=== PATIENT | female | born 1985 ===

== ENCOUNTER 2017-02-11 14:59 | Emergency (ER) | payer OTHER ==
[2017-02-11 15:27] VITALS: O2SAT 100
--- NOTE | 2017-02-11 17:13 | EDPHY ---
H & P Time Seen by Provider: 02/11/17 16:51 HPI/ROS: CHIEF COMPLAINT: skin lesion left shoulder HISTORY OF PRESENT ILLNESS: 31-year-old female presents to the emergency department complaining of a skin lesion to her left shoulder that has been growing over the last 8 weeks. Patient states that if she bumps it or scratches it this bleeds. Patient states she may have had a bad sunburn just before this started. She denies any trauma. No fevers or chills, no difficulty with range of motion of her shoulder, no shoulder swelling or left arm swelling. No other rash, no other complaints. Smoking Status: Never smoked Physical Exam: GEN: Awake, alert, oriented, no acute distress RESP: nl resp effort MSK: Full active range of motion of all joints, 2+ radial pulses SKIN: 0.5cm x 0.5cm red, raised, smooth lesion to left shoulder. No drainage, no surrounding erythema, non tender. Constitutional: Initial Vital Signs Temperature (C) 36.7 C 02/11/17 15:15 Heart Rate 92 02/11/17 15:15 Respiratory Rate 18 02/11/17 15:15 Blood Pressure 144/100 H 02/11/17 15:15 O2 Sat (%) 100 02/11/17 15:15 O2 Delivery Mode Room Air Allergies/Adverse Reactions: No Known Allergies Allergy (Verified 02/11/17 15:23) Home Medications: Medication Instructions Recorded Lisdexamfetamine Dimesylate 70 mg PO DAILY 11/24/12 [Vyvanse] Control Pill 02/11/17 MDM/Departure - [facility] ED Course/Re-evaluation: I discussed the patient that she needs to see bellman captain to have this lesion removed and evaluated. I told her they would likely biopsies the lesion and sent it to the lab. Patient is comfortable with this plan and states she will make an appointment with a bellman captain. - Depart Disposition: Home, Routine, Self-Care Clinical Impression: Arm skin lesion, left Condition: Good Instructions: Atypical Mole (ED) Additional Instructions: Follow up with a bellman captain at first available appointment. Referrals: Alexandru Cortes MD [Medical Doctor] - As per Instructions MAY FISH [Medical Doctor] - As per Instructions Henrietta Jaime MD [Medical Doctor] - As per Instructions Kenna Monahan MD [Medical Doctor] - As per Instructions
[2017-02-11 17:29] VITALS: BP 140/97; PULSE 76; RESP 16; TEMP 98.4
== END 2017-02-11 17:29 | disposition home or self-care (01) ==
DX: M75.92 Shoulder lesion, unspecified, left shoulder (principal)